=== PATIENT | female | born 1965 | race Caucasian/White ===

== ENCOUNTER 2025-04-05 10:38 | Emergency (ER) | payer MEDICAID, SELFPAY ==
[2025-04-05 10:45] VITALS: BP 176/102; PULSE 101; RESP 20; TEMP 36.8; O2SAT 98; BMI 25.0
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
--- NOTE | 2025-04-05 10:58 | PC.NURSE ---
Called [facility] to see about getting this pt transferred per Dr West for partial 1-2% thickness lowe on lower rt leg. Dr West is speaking with [facility] at this time
[2025-04-05 11:00] VITALS: BP 133/87; PULSE 87; O2SAT 98
[2025-04-05 11:00] LABS: Basophils % 0.2 % (0.1-2.0); Eosinophils # 0.1 Kmm3 (0.0-0.4); Eosinophils % 1.4 % (0.1-12.0); Hematocrit 43.7 % (37.0-47.0); Hemoglobin 14.8 g/dL (12.2-16.2); Immature Granulocytes # 0.03 10^3uL; Immature Granulocytes % 0.3 %; Lymphocytes # 2.1 K/mm3 (0.7-4.5); Lymphocytes % 21.7 % (10-50); Mean Corpuscular HGB Conc 33.9 g/dL (31.8-35.4); Mean Corpuscular Hemoglobin 30.5 pg (27.0-31.2); Mean Corpuscular Volume 89.9 fl (81-99); Mean Platelet Volume 9.9 fl (7.4-10.4); Monocytes # 0.4 K/mm3 (0.1-1.0); Monocytes % 4.1 % (1.7-9.3); Neutrophils % 72.3 % (37.0-80.0); Nucleated Red Blood Cells # 0 10^3/uL; Nucleated Red Blood Cells % 0 %; Platelet Count 225 K/mm3 (142-424); Red Blood Count 4.86 M/mm3 (4.20-5.40); Red Cell Distribution Width 12.7 % (11.5-17.5); Red Cell Distribution Width-SD 41.6 fL; White Blood Count 9.7 K/mm3 (4.8-10.8)
[2025-04-05] MEDS: TET/DIPHTH/PERT-ADULT 0.5ML SYRINGE 0.5 ML IM (11:00)
[2025-04-05] MEDS: LACTATED RINGERS 1000ML 1,000 ML 999 ML IV (11:05)
[2025-04-05 11:08] LABS: Alanine Aminotransferase 41 U/L (12-78); Albumin Level 4.2 g/dl (3.5-5.0); Albumin/Globulin Ratio 1.1 (1.1-1.8); Alkaline Phosphatase 93 U/L (38-126); Anion Gap 10.8 mEq/L (5-15); Aspartate Amino Transferase 40 U/L (14-36); Bilirubin,Total 0.9 mg/dl (0.2-1.3); Blood Urea Nitrogen 11 mg/dl (7-17); Calcium 9.1 mg/dl (8.4-10.2); Carbon Dioxide 29 mmol/L (22.0-30.0); Chloride 100 mmol/L (98-107); Creatine Kinase 50 U/L (30-135); Creatinine Clearance Estimated 115 mL/min (50-200); Estimated Glomerular Filt Rate 103 ml/min (>60); GFR (African American) 125 ML/MIN (>60); Globulin 3.8 g/dL (1.3-3.2); Glucose 133 mg/dl (74-100); Potassium 3.8 mmoL/L (3.5-5.1); Sodium 136 mmol/L (136-145)
[2025-04-05] MEDS: PIPERACILLIN/TAZO 4.5 GM in 0.9 % SODIUM CHLORIDE 100 ML IV (11:26)
[2025-04-05] MEDS: VANCOMYCIN/WATER FOR INJ (PEG) 1.25 GM/250 ML PIGGYBACK IV (11:35)
[2025-04-05] MEDS: OXYCODONE 5MG IMMEDIATE RELEASE TABLET 5 MG PO (12:12)
[2025-04-05] MEDS: ONDANSETRON 4MG/2ML VIAL 4 MG IV (12:13)
[2025-04-05] MEDS: NICOTINE 21MG/24HR PATCH 21 MG TD (12:34)
[2025-04-05 12:41] VITALS: BP 131/90; PULSE 86; RESP 18; TEMP 36.8; O2SAT 98
== END 2025-04-05 12:43 | disposition short-term general hospital (02) ==
PROVIDERS: Emergency Provider Emergency Medicine; PCP Nurse Practitioner
DX: T24.239A Burn of second degree of unspecified lower leg, initial encounter (principal); F17.210 Nicotine dependence, cigarettes, uncomplicated
CPT/HCPCS: 80053; 82550; 85025; 87040; 90471; 90715; 96361; 96365; 96366; 99291; J2405; J2543; J3372; J7120